=== PATIENT | male | born 1930 | race Caucasian/White ===

== ENCOUNTER 2017-08-06 04:02 | Emergency (ER) | payer MEDICARE ==
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
[2017-08-06] MEDS ORDERED: ONDANSETRON HCL/PF 2 MG/ML VIAL IV ONE (05:18)
[2017-08-06] MEDS ORDERED: HYDROmorphone HCL 1 MG/ML DISP.SYRIN IV ONE (05:19)
[2017-08-06] MEDS ORDERED: HYDROmorphone HCL 2 MG/ML VIAL ONE (05:19)
[2017-08-06] MEDS ORDERED: ONDANSETRON HCL/PF 2 MG/ML VIAL ONE (05:19)
--- NOTE | 2017-08-06 05:47 | CONS ---
[facility] - General Date of Service: 08/06/17 Narrative: Pt is an 87 y/o male who presents s/p a fall with acute hip pain. Pt is a resident at [facility] currently as his is there receiving PT after knee replacement. Most of the hx taken by patients daughter, who is in the room. He has a hx of right hip replacement approximately 10 years ago. 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 Pt has never fully recovered since this incident. Pt ambulates regularly with a cane. Pt states he has no other current complaints. Source: patient, family Exam Limitations: other - hx of stroke for patient approx. 2 years ago - History of Present Illness Allergies/Adverse Reactions: Allergies morphine Adverse Reaction (Severe, Verified 09/08/16 11:01) CONFUSION Home Medications: Home Medications Medication Instructions Recorded Last Taken Atorvastatin Calcium [Lipitor] 40 mg PO DAILY 09/18/12 Unknown Enalapril Maleate 20 mg PO BID 09/18/12 Unknown Bumetanide [Bumex] 2 mg PO BID 11/30/13 Unknown hydrALAZINE HCL [Hydralazine HCl] 100 mg PO TID 01/03/14 Unknown Docusate Sodium [Colace] 100 mg PO TID PRN 09/27/14 Unknown Potassium Chloride [Klor-Con 10] 20 meq PO TID 09/27/14 Unknown Bisacodyl [Dulcolax Suppository] 10 mg RC DAILY PRN 01/23/16 Unknown Escitalopram Oxalate [Lexapro] 20 mg PO DAILY 01/23/16 Unknown Lansoprazole [Prevacid] 30 mg PO BID 01/23/16 Unknown Metoprolol Tartrate [Lopressor] 12.5 mg PO BID 07/23/16 Unknown buPROPion HCL [Wellbutrin Sr, 150 mg PO BID 07/23/16 Unknown Zyban] Acetaminophen [Tylenol] 650 mg PO Q4H PRN 08/06/17 Unknown Lactose-Reduced Food [Ensure 240 ml PO BID 08/06/17 Unknown Liquid] Menthol [Biofreeze] 1 appl TP TID PRN 08/06/17 Unknown Rivaroxaban [Xarelto] 20 mg PO DAILY@1700 08/06/17 Unknown - Patient's Past Medical History Patient History - Medical: Osteoarthritis, Other Patient History - Cardiac/Respiratory: Atrial Fibrillation, CVA/Stroke Patient History - Cancer: No Hx of Cancer Patient History - Surgical Procedures: Angioplasty, Cataracts, Colon Resection, Colonoscopy, Coronary Bypass Surgery, Cardiac stent, Total Hip Replacement, Total Knee Replacement Patient History - Other: None - Family History Father Family History - Medical: Family History - Cardiac/Respiratory: Myocardial Infarction Mother Family History - Medical: - Social History Living Situations: assisted living Abuse History: No History of abuse Psych History: Hx of Depression Smoking Status: Never smoker Have you smoked in the past 12 months: No Alcohol Use: none Drug Use: none - Immunizations Immunizations Up to Date: Yes Hx Pneumococcal Vaccination: No History of Influenza Vaccine: No Procedures CATARAC PHACOEMULS/ASPIR (07/04/08) CLOSED ENDOSCOPIC BIOPSY OF LARGE INTESTINE (06/24/01) EPISTAXIS CONTROL NEC (02/27/13) INSERT LENS AT CATAR EXT (07/04/08) KNEE STRUCTURE DIVISION (07/05/08) KNEE SYNOVECTOMY (07/05/08) OPEN AND OTHER SIGMOIDECTOMY (06/24/01) OTH ARTHROTOMY-KNEE (07/05/08) OTHER SKIN & SUBQ I D (07/05/08) PACKED CELL TRANSFUSION (06/24/01) PATELLAR STABILIZATION (07/05/08) PLATELET TRANSFUSION (06/24/01) TOTAL KNEE REPLACEMENT (12/26/05) TRANSFUSE NONAUT FROZEN PLASMA IN PERIPH VEIN, PERC (09/08/16) VENOUS CATHETERIZATION NEC (06/24/01) WHOLE BLOOD TRANSFUS NEC (01/21/13) Review of Systems - Review of Systems Narrative: Negative other than HPI Physical Examination - Exam Vital Signs: Vital Signs - Last Taken Temp 36.9 C 08/06/17 04:06 Pulse 62 08/06/17 05:12 Resp 23 H 08/06/17 05:12 BP 155/69 08/06/17 05:12 Pulse Ox 93 08/06/17 05:12 O2 Oxygen Delivery Method Room Air Constitutional: Present: Cooperative, No distress Respiratory: Present: no respiratory distress Extremity: Present: other - RLE--> ttp over right hip, limb appears shortened and IR, SILT, dorsal pedis pulse 2+, 3/5 strength with PF/DF/EHL/FHL - Results and Findings: Narrative: - 87 y/o male with acute right hip dislocation s/p right total hip arthroplasty approximately 10 years ago - MAC anesthesia was administered, multiple reduction attempts were made. No successful reduction was believed. Post reduction films were obtained, confirmed a the right hip dislocation was not successfully reduced. Discussed with patient and daughter, who is the guardian, to treat patients current condition, he should be transferred to the [facility] for continued care and alternative attempts made for reduction. Pt will be transferred to the [facility] for continued care of is right hip dislocation. Pt was stable after reduction attempt, limb was neurovascularly intact and will be monitored until transfer. - Assessments/Findings (1) Hip dislocation, right Problem: Acute
--- NOTE | 2017-08-06 06:38 | PROC NOTE ---
ED Procedures - Joint Reduction Joint Reduction Site: hip (R) Conscious Sedation: Yes Progress: Preformed by: Edouard Jain PA-C Anesthesia: MAC Preoperative diagnosis: Right prosthetic hip dislocation Postoperative diagnosis: Right prosthetic hip dislocation. Procedure: Closed reduction of right prosthetic hip dislocation under conscious sedation Estimated blood loss: None Specimens: None Complications: None Indications: Mr. Conner is an 87 y/o male presents s/p an acute fall last night at the long-term. Pt was brought in for right hip pain. Pt has hx of right hip arthroplasty approximately 10 years ago. Pt has no hx of hip dislocations. Pt did suffer from a left sided stroke with right sided weakness. He were seen in the emergency department with images obtained revealing the above injury. Treatment options were discussed with the patient and family and the plan for closed reduction under conscious sedation was discussed. Risks were reviewed as well as follow-up. Procedure: After a timeout, MAC anesthetic was induced. Once adequate anesthesia was in place a reduction maneuver was performed by having downward stabilization at the pelvis at the ASIS while I pulled traction distally and anteriorly with the hip in a flexed and slightly externally rotated position. The hip appeared to not be successfully reduced. Multiple attempts were made in this fashion with no success. This was confirmed by AP and lateral post-reduction x-rays. The extremity was neurovascularly intact post-reduction attempts. Then discussed with daughter, who is the guardian, about treatment options including being referred to the [facility] for further attempts possibly under general anesthesia. Due to the history of hip arthroplasty and the unsuccessful reduction this would be the preferred option. Pt daughter agreed and pt will be transferred to [facility].
[2017-08-06 08:17] VITALS: BP 156/77
== END 2017-08-06 08:18 | disposition short-term general hospital (02) ==
LOC: ER 04:02
PROC: 0SW9XJZ Revision of Synthetic Substitute in Right Hip Joint, External Approach (ICD-10-PCS; principal; 2017-08-06)
DX: S73.004A Unspecified dislocation of right hip, initial encounter (principal); W18.30XA Fall on same level, unspecified, initial encounter; Y93.89 Activity, other specified; Y92.121 Bathroom in nursing home as the place of occurrence of the external cause; M19.90 Unspecified osteoarthritis, unspecified site; I48.91 Unspecified atrial fibrillation; Z79.01 Long term (current) use of anticoagulants
CPT/HCPCS: 27266; 71010; 73030; 73060; 73502; 96374; 96375; 99285; J2405

== ENCOUNTER 2019-03-22 16:37 | Observation (INO) ==
[2019-03-22] MEDS ORDERED: FUROSEMIDE 10 MG/ML VIAL IV ONE (17:27)
--- NOTE | 2019-03-22 17:37 | ERNOTE ---
Medical Problem HPI - Narrative Date of Service: 03/22/19 - General Chief Complaint: General Assessment Time Seen by Provider: 03/22/19 17:10 Source: patient, family Exam Limitations: physical impairment - Immun/Allergies/Home Medications Immunizations: IMMUNIZATION HX Immunizations Up to Date Yes History of Influenza Vaccine No Hx Pneumococcal Vaccination No Allergies/Adverse Reactions: Allergies morphine Adverse Reaction (Severe, Verified 03/22/19 16:59) CONFUSION Home Medications: HOME MEDICATIONS Docusate Sodium [Colace] 100 mg PO TID PRN 09/27/14 [Last Taken Unknown] Bisacodyl [Dulcolax Suppository] 10 mg RC DAILY PRN 01/23/16 [Last Taken Unknown] Acetaminophen [Tylenol] 650 mg PO Q4H PRN 08/06/17 [Last Taken Unknown] Lactose-Reduced Food [Ensure Liquid] 240 ml PO BID 08/06/17 [Last Taken Unknown] Menthol [Biofreeze] 1 appl TP TID PRN 08/06/17 [Last Taken Unknown] lidocaine 5 % topical patch 1 patch TP DAILY #30 ea 07/01/18 [Last Taken Unknown] bupropion HCl SR 150 mg tablet,12 hr sustained-release 150 mg PO BID #60 tab 11/08/18 [Last Taken Unknown] escitalopram 20 mg tablet 20 mg PO DAILY #30 tab 11/08/18 [Last Taken Unknown] atorvastatin 40 mg tablet 40 mg PO DAILY #30 tab 02/06/19 [Last Taken Unknown] bumetanide 2 mg tablet 2 mg PO BID #60 tab 02/06/19 [Last Taken Unknown] hydralazine 100 mg tablet 100 mg PO TID #90 tab 02/06/19 [Last Taken Unknown] lansoprazole 30 mg capsule,delayed release 30 mg PO BID #60 cap 02/06/19 [Last Taken Unknown] metoprolol tartrate 25 mg tablet 12.5 mg PO BID #30 tab 02/06/19 [Last Taken Unknown] potassium chloride ER 10 mEq capsule,extended release 20 meq PO TID #180 cap 02/06/19 [Last Taken Unknown] rivaroxaban 20 mg tablet 20 mg PO DAILY #30 tab 02/06/19 [Last Taken Unknown] magnesium citrate oral solution 296 ml PO ONCE #296 ml 02/11/19 [Last Taken Unknown] enalapril maleate 20 mg tablet 20 mg PO BID #60 tab 02/23/19 [Last Taken Unknown] - History of Present History Narrative: This patient is an 89-year-old male who is here with his daughter for a hospital admission. The patient has had a stroke and is a phasic. He is not able to give much history. The daughter states that he saw his locomotive engineer electric, Dr. Agosto, today. She recommended that he be admitted to the hospital and instructed him to go to the emergency room. The patient was accompanied to the visit by a son. That visit was around noon today. The son took him home to rest before the daughter brought him here. The daughter states that she understood that he is to be admitted for excess fluid. She says that he has gained 40 pounds, is short of breath, dizzy, and has swollen legs that are now blistering. He sleeps a lot and is weak. He is having leg pain. [facility] and [facility] was contacted and it sounds like the patient is no longer able to care for himself at home and has been having falls. There is concerned that he might need a [place] health care facility. Review of Systems - Review of Systems Constitutional: Present: fever EYE: Absent: blurred vision, double vision ENT: Absent: ear pain, nose congestion, nasal drainage, sore throat Respiratory: Present: shortness of breath. Absent: cough Cardiology: Present: edema. Absent: chest pain, palpitations, syncope Gastrointestinal/Abdominal: Present: abdominal pain. Absent: nausea, vomiting, diarrhea, constipation Genitourinary: Present: pain. Absent: frequency, decreased urinary output Musculoskeletal: Present: other - He has leg pain. Skin: Present: other - Leg swelling and blistering as noted above Neurological: Present: dizziness/light-headedness, weakness - Right-sided weakness after the stroke about 4 years ago. Absent: headache Endocrine: Present: unexplained weight gain Hematologic/Lymphatic: Present: other - No active bleeding but he has a history of anemia Psych: Present: no symptoms reported Medical History (Updated 03/22/19 @ 19:12 by Davide Mccall MD) Afib Onset Date: Unknown CAD (coronary artery disease) Onset Date: Unknown CHF (congestive heart failure) Onset Date: Unknown Chronic neck pain Onset Date: Unknown Hyperlipidemia Onset Date: Unknown Hypertension Onset Date: Unknown Hypokalemia Onset Date: Unknown Obesity Onset Date: Unknown Osteoarthritis Onset Date: Unknown Sleep apnea Onset Date: ~04/12/12 Aphasia Onset Date: Unknown Balance problem Onset Date: Unknown CVA (cerebral vascular accident) Onset Date: Unknown Chest pain Onset Date: Unknown Diverticulosis Onset Date: Unknown Dyspnea Onset Date: Unknown Edema Onset Date: Unknown Epididymal cyst Onset Date: ~01/15/18 GI bleed Onset Date: Unknown Gout Onset Date: Unknown Myocardial infarction Onset Date: Unknown Oropharyngeal dysphagia Onset Date: Unknown Pulmonary hypertension Onset Date: Unknown Rectal bleeding Onset Date: ~1981 TIA (transient ischemic attack) Onset Date: ~2017 Surgical History: Surgical History (Updated 07/01/18 @ 09:41 by Andria Kenyon CMA) Cataract Onset Date: ~07/04/08 right 06/06/08 left 07/04/08 H/O angioplasty Onset Date: ~1992 H/O cardiac catheterization Onset Date: ~08/2000 H/O oral surgery Onset Date: ~09/03/16 [facility] H/O sigmoidoscopy Onset Date: ~06/26/01 [place] History of colon resection Onset Date: ~06/26/01 sigmoid History of hip replacement Onset Date: Unknown right History of knee replacement Onset Date: ~12/29/05 left, neetu Hx of CABG Onset Date: ~06/2000 4 vessel H/O colonoscopy Onset Date: ~06/20/15 06/25/01, [place] diverticular disease. 06/20/15 [facility] tubular adenoma x2. Moderate diverticulosis ascending colon and sigmoid colon several large diverticula at cecum. Family History: Family History (Updated 07/01/18 @ 09:51 by Andria Kenyon CMA) Mother Myocardial infarction Daughter Alive and well Brother Cataract Social History: Preferred Language Luxembourgish Do you have any congregation or No cultural preference? Smoking Status Never smoker Abuse History No History of abuse Psych History Hx of Depression Alcohol Use none Drug Use none (Last Updated 02/28/19 @ 23:06 by Nando Ghotra DO) No Social History Section defined Physical Exam - Physical Exam General Appearance: Present: no apparent distress, lethargic, other - This patient is an elderly male who is sitting on the table with his eyes closed. He has difficulty answering questions, other than yes and no. Head Exam: Present: normal inspection, no evidence of injury Eye Exam: Normal inspection: bilateral Ears, Nose, Throat: Present: normal ENT inspection, normal pharynx Neck: Present: normal inspection, nontender. Absent: lymphadenopathy (R), lymphadenopathy (L), thyromegaly Respiratory: Present: no respiratory distress, normal breath sounds, crackles - Bilateral bases Cardiovascular/Chest: Present: regular rate, rhythm, systolic murmur Gastrointestinal/Abdominal: Present: normal bowel sounds, nondistended, soft, tenderness - Right upper quadrant. Absent: guarding, rebound Back Exam: Present: normal inspection Extremity Exam: Present: other - He has mild erythema of the lower extremities with some blisters noted on the left. He has 3+ pitting edema. The edema is up to the calf.. Absent: no edema Neurological Exam: Present: other - He is sitting on the table with his eyes closed. He has a aphasia and difficulty forming words. He is stutters. He has right-sided hemiplegia. Skin Exam: Present: normal color, warm/dry Progress - Date and Time Seen: Date and Time: Dr. Guerrero agreed to admit the patient. I spoke with the patient and his daughter. There is no way they want to go to a [place] facility. - Results and Orders Patient's Lab Results:: I have reviewed the patient's lab results. Results and Orders: Laboratory Tests 03/22/19 03/22/19 03/22/19 17:42 17:42 17:42 WBC 5.3 Hgb 7.2 L* Hct 26.4 L Plt Count 152 Immature Gran % (Auto) 0.20 Neutrophils % 62.2 Lymphocytes % 21.0 Monocytes % 12.9 H Eosinophils % 3.0 Basophils % 0.7 PT 14.0 H INR (Anticoag Therapy) 1.43 H Sodium 141 Plasma Sodium 141 Potassium 3.8 Chloride 103 Carbon Dioxide 29.0 Anion Gap 12.8 BUN 23 Creatinine 1.38 Est GFR (Non-Af Amer) 52 L BUN/Creatinine Ratio 16.7 Random Glucose 71 Calcium 8.5 Calcium Adj for Albumin 8.7 Total Bilirubin 0.6 AST 27 ALT 19 Alkaline Phosphatase 109 Troponin I 0.051 B-Natriuretic Peptide 7282 H Total Protein 7.7 Albumin 3.3 L Urine Color Urine Appearance Urine pH Ur Specific [place] Urine Protein Urine Glucose (UA) Urine Ketones Urine Blood Urine Nitrate Urine Bilirubin Urine Urobilinogen Ur Leukocyte Esterase Urine RBC Urine WBC Ur Epithelial Cells Urine Bacteria Hyaline Casts Urine Culture Comments 03/22/19 18:24 WBC Hgb Hct Plt Count Immature Gran % (Auto) Neutrophils % Lymphocytes % Monocytes % Eosinophils % Basophils % PT INR (Anticoag Therapy) Sodium Plasma Sodium Potassium Chloride Carbon Dioxide Anion Gap BUN Creatinine Est GFR (Non-Af Amer) BUN/Creatinine Ratio Random Glucose Calcium Calcium Adj for Albumin Total Bilirubin AST ALT Alkaline Phosphatase Troponin I B-Natriuretic Peptide Total Protein Albumin Urine Color Yellow Urine Appearance Clear Urine pH 6.5 Ur Specific [place] 1.010 Urine Protein Negative Urine Glucose (UA) Negative Urine Ketones Negative Urine Blood Negative Urine Nitrate Negative Urine Bilirubin Negative Urine Urobilinogen Normal Ur Leukocyte Esterase Negative Urine RBC None seen Urine WBC None seen Ur Epithelial Cells 0-5 Urine Bacteria Trace Hyaline Casts 0-5 H Urine Culture Comments No culture indicated - Vital Signs Patient's Vital Signs:: I have reviewed the patient's vital signs. Vital Signs: Vital Signs 03/22/19 16:54 Temperature 36.1 C Pulse Rate 63 Respiratory Rate 20 Blood Pressure 156/89 H O2 Sat by Pulse Oximetry 95 - EKG EKG #1 EKG read: Interp. by me EKG Comments: Atrial fibrillation Rate [address]-T wave changes Poor R wave progression Compared to an EKG dated 06/18/2015, the lateral ST T wave changes are new. - X-Ray X-Ray #1 X-Ray: chest Interpretation: Reviewed by me X-ray Comments: HISTORY: short of breath Additional history from technologist: PATIENT WITH SHORTNESS OF BREATH, BILATERAL LEG SWELLING, WEAKNESS TODAY. TECHNIQUE: Single portable AP view of the chest was obtained at 1745 hours. COMPARISONS: 08/06/2017 FINDINGS: Chest Single View *: Severely hypoinflated lungs. Bibasilar linear opacities suggestive of atelectatic change. There is increased pulmonary vasculature and peripheral linear lung markings. No definite definable pneumothorax. No definite pleural fluid suggested. Moderate to large cardiomegaly, grossly stable given differences in technique and positioning of the patient. Vascular calcifications overlying moderately tortuous aorta, grossly stable. Trachea is in normal position given patient positioning. Osseous structures are grossly intact. Multiple median sternotomy wires are present. IMPRESSION: 1. Hypoventilatory changes, with bibasilar atelectasis. 2. Grossly stable cardiomegaly, with increased pulmonary vascular and peripheral linear lung markings suggestive of pulmonary edema. 3. Additional comments are as above. Electronically signed by Alphonse Lovell M.D.. - Progress/Reassessment Chief Complaint: General Assessment Departure Clinical Impression: Anemia, CHF (congestive heart failure), Anasarca, History of CVA (cerebrovascular accident), History of coronary artery disease - Departure Disposition: Still a patient Condition: Stable
[2019-03-22 18:00] LABS: INR 1.43 INR (0.92-1.08)
[2019-03-22 18:07] LABS: Hematocrit 26.4 % (42.0-52.0); Mean Cell Volume 82.8 fl (78-100); Mean Corpuscular Hemoglobin 22.6 pg (27-31); Mean Corpuscular Hgb Conc 27.3 g/dl (32-36); Mean Platelet Volume 9.3 fl (8-11.3); Neutrophil # 3.3 K/mm3 (1.3-6.0); Neutrophil % 62.2 % (42-75.0); Platelet Count 152 K/mm3 (150-450); Red Blood Count 3.19 M/mm3 (4.7-6.0); Red Cell Distribution Width 21.5 % (11.5-14.0); White Blood Count 5.3 K/mm3 (4.0-10.5)
[2019-03-22 18:09] LABS: Albumin * 3.3 gm/dl (3.4-5.0); Anion Gap 12.8 mmol/L (6.8-13.8); BUN/Creatinine Ratio 16.7 (9.0-21.6); Bilirubin, Total 0.6 mg/dL (0.0-1.1); Ca. Corrected For Albumin 8.7 mg/dL (8.4-10.2); Calcium * 8.5 mg/dL (7.9-10.9); Potassium 3.8 mmol/L (3.4-4.6); Total Protein 7.7 gm/dL (6.2-8.2)
[2019-03-22 18:10] LABS: Hemoglobin 7.2 gm/dL (13.5-18.0)
[2019-03-22 18:12] LABS: Troponin I 0.051 ng/mL (0.00-0.10)
[2019-03-22 18:33] LABS: Urine Bilirubin Negative (NEGATIVE); Urine Blood Negative /ul (NEGATIVE); Urine Ketone Negative (NEGATIVE); Urine Nitrite Negative (NEGATIVE); Urine Protein Negative (NEGATIVE); Urine Urobilinogen Normal (NORMAL); Urine pH 6.5 pH (5.0-7.0)
[2019-03-22 18:42] LABS: Urine Appearance Clear (CLEAR); Urine Bacteria TRACE; Urine Color Yellow; Urine Hyaline Cast 0-5 /LPF; Urine RBC None Seen /hpf (0-5); Urine WBC None Seen /hpf (0-5)
[2019-03-22] MEDS ORDERED: ACETAMINOPHEN 325 MG TABLET PO PRN (21:12)
[2019-03-22] MEDS ORDERED: NON-FORMULARY 1 DOSE DOSE (Menthol [Biofreeze] 1 APPL) TP PRN (21:12)
[2019-03-22] MEDS ORDERED: DOCUSATE SODIUM 100 MG CAPSULE PO PRN (21:12)
[2019-03-22] MEDS ORDERED: BISACODYL 10 MG SUPP.RECT RC PRN (21:12)
[2019-03-22] MEDS ORDERED: hydrALAZINE HCL 25 MG TABLET ONE (22:37)
[2019-03-22] MEDS: hydrALAZINE HCL 50 MG TABLET PO SCH (22:40)
[2019-03-22] MEDS: METOPROLOL TARTRATE 25 MG TABLET PO SCH (22:41)
[2019-03-22] MEDS: POTASSIUM CHLORIDE 20 MEQ TABLET.SA PO SCH (22:41)
[2019-03-22] MEDS: buPROPion HCL 150 MG TABLET.SA PO SCH (22:42)
[2019-03-22] MEDS: ENALAPRIL MALEATE 20 MG TABLET PO SCH (22:42)
[2019-03-23] MEDS ORDERED: FUROSEMIDE 10 MG/ML VIAL IV SCH ×2 (00:01→09:00)
[2019-03-23] MEDS: PANTOPRAZOLE SODIUM 40 MG TABLET.EC PO SCH ×2 (06:49→16:36)
--- NOTE | 2019-03-23 07:16 | HP ---
Chief Complaint - Chief Complaint Date of Service: 03/23/19 Time of Service: 06:48 Chief Complaint: shortnss of breath History of Present Illness: Andrea Conner is a 89-year-old white male, patient of Dr. Ghotra, who was admitted yesterday on 03/22/2019 because of weight gain and shortness of breath. The patient's past medical history is significant for Coronary artery disease status post CABG, atrial fibrillation, hypertension, hyperlipidemia, pulmonary hypertension, obstructive sleep apnea. The patient was seen by Dr. 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 The patient functional status has significantly declined. As per family patient is just sleeping a lot and is getting weaker and weaker. The patient gained 40 pounds and gets leg pains. He has been increasing really having shortness of breath associated with dizziness. He has been having increasing number of falls and family is concerned that he is no longer able to take care of himself and may need a half-way. In the ED his EKG showed AFib with VR of 65, anteroseptal myocardial infarction of indeterminate age. His troponin was .052 and his BNP was 7282. His CXR showed cardiomegaly with pulmonary edema and basilar atelectasis. Patient was admitted for IV diuresis and possible half-way placement. . Medical History (Updated 03/23/19 @ 07:16 by Danika Guerrero MD) Afib Onset Date: Unknown CAD (coronary artery disease) Onset Date: Unknown CHF (congestive heart failure) Onset Date: Unknown Chronic neck pain Onset Date: Unknown Hyperlipidemia Onset Date: Unknown Hypertension Onset Date: Unknown Hypokalemia Onset Date: Unknown Obesity Onset Date: Unknown Osteoarthritis Onset Date: Unknown Sleep apnea Onset Date: ~04/12/12 Aphasia Onset Date: Unknown Balance problem Onset Date: Unknown CVA (cerebral vascular accident) Onset Date: Unknown Chest pain Onset Date: Unknown Diverticulosis Onset Date: Unknown Dyspnea Onset Date: Unknown Edema Onset Date: Unknown Epididymal cyst Onset Date: ~01/15/18 GI bleed Onset Date: Unknown Gout Onset Date: Unknown Myocardial infarction Onset Date: Unknown Oropharyngeal dysphagia Onset Date: Unknown Pulmonary hypertension Onset Date: Unknown Rectal bleeding Onset Date: ~1981 TIA (transient ischemic attack) Onset Date: ~2017 Surgical History: Surgical History (Updated 03/23/19 @ 07:16 by Danika Guerrero MD) Cataract Onset Date: ~07/04/08 right 06/06/08 left 07/04/08 H/O angioplasty Onset Date: ~1992 H/O cardiac catheterization Onset Date: ~08/2000 H/O oral surgery Onset Date: ~09/03/16 [facility] H/O sigmoidoscopy Onset Date: ~06/26/01 [place] History of colon resection Onset Date: ~06/26/01 sigmoid History of hip replacement Onset Date: Unknown right History of knee replacement Onset Date: ~12/29/05 leftenetu Hx of CABG Onset Date: ~06/2000 4 vessel H/O colonoscopy Onset Date: ~06/20/15 06/25/01, [place] diverticular disease. 06/20/15 [facility] tubular adenoma x2. Moderate diverticulosis ascending colon and sigmoid colon several large div erticula at cecum. 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 Smoking Status Never smoker Have you smoked in the past 12 No months Do you dip or chew tobacco No Abuse History No History of abuse Psych History Hx of Depression Alcohol Use none Drug Use none (Last Updated 02/28/19 @ 23:06 by Nando Ghotra DO) No Social History Section defined Review Of Systems (GEN) - Review of Systems Generalized/Overall Review: Present: Weakness. Absent: Chills, Fever EENTM: Absent: Blurred Vision Respiratory: Present: Cough, Shortness of Breath, Orthopnea, Wheezing - occasional Cardiac: Present: Edema. Absent: Chest Pain, Palpitations Abdominal: Absent: Nausea, Vomiting, Abdominal Pain Genitourinary: Absent: Urgency, Frequency Musculoskeletal: Present: Other - leg pain. Absent: Joint Pain, Back Pain Neurological: Absent: Headache Skin: Present: Lesions, Rash Endocrine: Absent: Intolerance to Cold, Intolerance to Heat Misc: All systems neg except as marked Immunizations: IMMUNIZATION HX Immunizations Up to Date Yes History of Influenza Vaccine No Hx Pneumococcal Vaccination No Allergies/Adverse Reactions: Allergies Allergy/AdvReac Type Severity Reaction Status Date / Time morphine AdvReac Severe CONFUSION Verified 03/22/19 16:59 Home Medications: HOME MEDICATIONS Docusate Sodium [Colace] 100 mg PO TID PRN 09/27/14 [Last Taken Unknown] Bisacodyl [Dulcolax Suppository] 10 mg RC DAILY PRN 01/23/16 [Last Taken Unknown] Acetaminophen [Tylenol] 650 mg PO Q4H PRN 08/06/17 [Last Taken Unknown] Menthol [Biofreeze] 1 appl TP TID PRN 08/06/17 [Last Taken Unknown] bupropion HCl SR 150 mg tablet,12 hr sustained-release 150 mg PO BID #60 tab 11/08/18 [Last Taken Unknown] escitalopram 20 mg tablet 20 mg PO DAILY #30 tab 11/08/18 [Last Taken Unknown] atorvastatin 40 mg tablet 40 mg PO DAILY #30 tab 02/06/19 [Last Taken Unknown] bumetanide 2 mg tablet 2 mg PO BID #60 tab 02/06/19 [Last Taken Unknown] hydralazine 100 mg tablet 100 mg PO TID #90 tab 02/06/19 [Last Taken Unknown] lansoprazole 30 mg capsule,delayed release 30 mg PO BID #60 cap 02/06/19 [Last Taken Unknown] metoprolol tartrate 25 mg tablet 12.5 mg PO BID #30 tab 02/06/19 [Last Taken Unknown] potassium chloride ER 10 mEq capsule,extended release 20 meq PO TID #180 cap 02/06/19 [Last Taken Unknown] rivaroxaban 20 mg tablet 20 mg PO DAILY #30 tab 02/06/19 [Last Taken 03/21/19 20:00 20MG] enalapril maleate 20 mg tablet 20 mg PO BID #60 tab 02/23/19 [Last Taken Unknown] Finasteride [Proscar] 5 mg PO DAILY 03/22/19 [Last Taken Unknown] hydrALAZINE HCL [Hydralazine HCl] 100 mg PO TID 03/22/19 [Last Taken Unknown] Exam - Exam Vital Signs: Vital Signs - Last Taken Temp 37.1 C 03/23/19 06:32 Pulse 59 L 03/23/19 06:32 Resp 24 H 03/23/19 06:32 BP 136/67 03/23/19 06:32 Pulse Ox 95 03/23/19 06:32 Constitutional: Present: Alert - AAO x 2, Cooperative, Mild distress, Elderly ENT Exam: Present: hearing grossly normal Eye Exam: bilateral eye: normal inspection, PERRL, EOMI Neck: Present: supple Respiratory: Present: decreased breath sounds, rales, wheezing - occasional Cardiovascular/Chest: Present: JVD, diastolic murmur, irregularly irregular Abdomen: Present: Normal bowel sounds, soft, nontender, nondistended Extremity: Present: no calf tenderness, lower extremity edema Diagnostic Studies: Abnormal Lab Results 03/22/19 03/22/19 03/22/19 Range/Units 17:42 17:42 17:42 RBC 3.19 L (4.7-6.0) M/mm3 Hgb 7.2 L* (13.5-18.0) gm/dL Hct 26.4 L (42.0-52.0) % MCH 22.6 L (27-31) pg MCHC 27.3 L (32-36) g/dl RDW 21.5 H (11.5-14.0) % Monocytes % 12.9 H (0.0-9) % Lymphocytes # 1.12 L (1.5-3.5) k/mm3 PT 14.0 H (9.1-10.7) Seconds INR (Anticoag Therapy) 1.43 H (0.92-1.08) INR Est GFR (Non-Af Amer) 52 L (60-130) mL/min B-Natriuretic Peptide 7282 H (5-650) pg/mL Albumin 3.3 L (3.4-5.0) gm/dl Hyaline Casts (NONE) /LPF 03/22/19 Range/Units 18:24 RBC (4.7-6.0) M/mm3 Hgb (13.5-18.0) gm/dL Hct (42.0-52.0) % MCH (27-31) pg MCHC (32-36) g/dl RDW (11.5-14.0) % Monocytes % (0.0-9) % Lymphocytes # (1.5-3.5) k/mm3 PT (9.1-10.7) Seconds INR (Anticoag Therapy) (0.92-1.08) INR Est GFR (Non-Af Amer) (60-130) mL/min B-Natriuretic Peptide (5-650) pg/mL Albumin (3.4-5.0) gm/dl Hyaline Casts 0-5 H (NONE) /LPF Laboratory Results WBC 5.3 K/mm3 (4.0-10.5) 03/22/19 17:42 RBC 3.19 M/mm3 (4.7-6.0) L 03/22/19 17:42 Hgb 7.2 gm/dL (13.5-18.0) L* 03/22/19 17:42 Hct 26.4 % (42.0-52.0) L 03/22/19 17:42 MCV 82.8 fl (78-100) 03/22/19 17:42 MCH 22.6 pg (27-31) L 03/22/19 17:42 MCHC 27.3 g/dl (32-36) L 03/22/19 17:42 RDW 21.5 % (11.5-14.0) H 03/22/19 17:42 Plt Count 152 K/mm3 (150-450) 03/22/19 17:42 MPV 9.3 fl (8-11.3) 03/22/19 17:42 Immature Gran % (Auto) 0.20 % (0.001-0.429) 03/22/19 17:42 Immature Gran # (Auto) 0.01 K/mm3 (0.000-0.0310) 03/22/19 17:42 62.2 % (42-75.0) 03/22/19 17:42 21.0 % (20-51) 03/22/19 17:42 12.9 % (0.0-9) H 03/22/19 17:42 3.0 % (0.0-3.0) 03/22/19 17:42 0.7 % (0.0-1.0) 03/22/19 17:42 Nucleated RBC % 0.0 k/mm3 (0-1) 03/22/19 17:42 3.3 K/mm3 (1.3-6.0) 03/22/19 17:42 1.12 k/mm3 (1.5-3.5) L 03/22/19 17:42 0.7 k/mm3 (0.0-1.0) 03/22/19 17:42 0.2 k/mm3 (0.0-0.7) 03/22/19 17:42 Absolute Basophils 0.0 k/mm3 (0.0-0.1) 03/22/19 17:42 PT 14.0 Seconds (9.1-10.7) H 03/22/19 17:42 INR (Anticoag Therapy) 1.43 INR (0.92-1.08) H 03/22/19 17:42 Sodium 141 mmol/L (132-142) 03/22/19 17:42 141 mmol/L (130-142) 03/22/19 17:42 Potassium 3.8 mmol/L (3.4-4.6) 03/22/19 17:42 Chloride 103 mmol/L (97-106) 03/22/19 17:42 Carbon Dioxide 29.0 mmol/L (24-32.6) 03/22/19 17:42 12.8 mmol/L (6.8-13.8) 03/22/19 17:42 BUN 23 mg/dL (6-23) 03/22/19 17:42 1.38 mg/dL (0.4-1.4) 03/22/19 17:42 Est GFR (Non-Af Amer) 52 mL/min (60-130) L 03/22/19 17:42 16.7 (9.0-21.6) 03/22/19 17:42 71 mg/dL (70-110) 03/22/19 17:42 Calcium 8.5 mg/dL (7.9-10.9) 03/22/19 17:42 Calcium Adj for Albumin 8.7 mg/dL (8.4-10.2) 03/22/19 17:42 0.6 mg/dL (0.0-1.1) 03/22/19 17:42 AST 27 U/L (0-48) 03/22/19 17:42 ALT 19 U/L (19-67) 03/22/19 17:42 109 U/L (50-170) 03/22/19 17:42 0.051 ng/mL (0.00-0.10) 03/22/19 17:42 B-Natriuretic Peptide 7282 pg/mL (5-650) H 03/22/19 17:42 7.7 gm/dL (6.2-8.2) 03/22/19 17:42 3.3 gm/dl (3.4-5.0) L 03/22/19 17:42 Yellow 03/22/19 18:24 Clear (CLEAR) 03/22/19 18:24 6.5 pH (5.0-7.0) 03/22/19 18:24 Ur Specific [place] 1.010 SP.GR. (1.005-1.030) 03/22/19 18:24 Negative mg/dL (NEGATIVE) 03/22/19 18:24 Negative mg/dL (NEGATIVE) 03/22/19 18:24 Negative mg/dL (NEGATIVE) 03/22/19 18:24 Negative /ul (NEGATIVE) 03/22/19 18:24 Negative (NEGATIVE) 03/22/19 18:24 Negative mg/dl (NEGATIVE) 03/22/19 18:24 Normal EU/dl (NORMAL) 03/22/19 18:24 Ur Leukocyte Esterase Negative /ul (NEGATIVE) 03/22/19 18:24 None seen /hpf (0-5) 03/22/19 18:24 None seen /hpf (0-5) 03/22/19 18:24 Ur Epithelial Cells 0-5 /hpf (0-5) 03/22/19 18:24 Trace (NONE) 03/22/19 18:24 Hyaline Casts 0-5 /LPF (NONE) H 03/22/19 18:24 No culture indicated 03/22/19 18:24 Assessment/Plan - Assessment/Plan (1) Weakness Assessment: multifactorial- advanced age, anemia, deconditioning , CHF. will refer to PT. consider BT once out of acute exacerbation of CHF Problem: Acute (2) Falls frequently Assessment: due to weakness Problem: Acute (3) Acute exacerbation of CHF (congestive heart failure) Assessment: he put out 1950 ml overnight after getting total of 120 mg of IV Lasix. continue with IV diuresis. low salt diet. monitor I's and O's and daily weight. he is on an FLORY I and and a BBlocker. Problem: Acute Qualifiers: Heart failure type: unspecified Qualified Code(s): I50.9 - Heart failure, unspecified (4) History of CVA (cerebrovascular accident) Problem: Chronic (5) History of coronary artery disease Assessment: s/p CABG Problem: Chronic (6) Pulmonary hypertension Problem: Chronic
[2019-03-23 07:46] LABS: Hematocrit 24.1 % (42.0-52.0); Mean Cell Volume 80.6 fl (78-100); Mean Corpuscular Hemoglobin 23.1 pg (27-31); Mean Corpuscular Hgb Conc 28.6 g/dl (32-36); Mean Platelet Volume 9.3 fl (8-11.3); Neutrophil % 60.8 % (42-75.0); Platelet Count 154 K/mm3 (150-450); Red Blood Count 2.99 M/mm3 (4.7-6.0); Red Cell Distribution Width 21.2 % (11.5-14.0); White Blood Count 4.9 K/mm3 (4.0-10.5)
[2019-03-23 07:50] LABS: Hemoglobin 6.9 gm/dL (13.5-18.0)
[2019-03-23 07:58] LABS: Anion Gap 12.3 mmol/L (6.8-13.8); BUN/Creatinine Ratio 15.3 (9.0-21.6); Calcium * 8.4 mg/dL (7.9-10.9); Carbon Dioxide 29.1 mmol/L (24-32.6); Estimated Creat Clear 40.9; Potassium 3.4 mmol/L (3.4-4.6)
[2019-03-23 08:01] LABS: Troponin I 0.038 ng/mL (0.00-0.10)
[2019-03-23] MEDS ORDERED: FINASTERIDE 5 MG TABLET PO SCH (09:00)
[2019-03-23] MEDS ORDERED: ROSUVASTATIN CALCIUM 20 MG TABLET PO SCH ×2 (09:00→21:00)
[2019-03-23] MEDS ORDERED: HYDRALAZINE HCL 100 MG PO SCH (09:00)
[2019-03-23] MEDS ORDERED: ESCITALOPRAM OXALATE 10 MG TAB PO SCH (09:00)
[2019-03-23] MEDS ORDERED: RIVAROXABAN 20 MG TABLET PO SCH (09:00)
[2019-03-23] MEDS: hydrALAZINE HCL 50 MG TABLET PO SCH ×3 (09:57→16:36)
[2019-03-23] MEDS: ENALAPRIL MALEATE 20 MG TABLET PO SCH (09:58)
[2019-03-23] MEDS: METOPROLOL TARTRATE 25 MG TABLET PO SCH (09:58)
[2019-03-23] MEDS: POTASSIUM CHLORIDE 20 MEQ TABLET.SA PO SCH ×3 (09:58→16:36)
[2019-03-23] MEDS: buPROPion HCL 150 MG TABLET.SA PO SCH (09:59)
[2019-03-23 18:40] LABS: Hematocrit 28.8 % (42.0-52.0); Hemoglobin 8.3 gm/dL (13.5-18.0)
--- NOTE | 2019-03-23 18:42 | DS ---
(1) Acute exacerbation of CHF (congestive heart failure) Problem: Acute Qualifiers: Heart failure type: diastolic Qualified Code(s): I50.33 - Acute on chronic diastolic (congestive) heart failure (2) Anemia Problem: Acute Qualifiers: Iron deficiency anemia type: chronic blood loss Description of Stay: Andrea is an 89 yo male that was admitted for shortness of breath secondary to acute on chronic diastolic CHF and anemia of chronic disease. He occasionally has nose bleeds and the hemoglobin has trended down over time. Hemoglobin is now 6.9 and due to his symptomatic shortness of breath he was transfused 2 units of pRBCs with IV lasix. He was treated with Lasix due to evidence of pulmonary congestion on chest xray, although no findings of hypoxia. He was admitted to observation for diuresis and blood transfusion but once that was completed he was discharged to home. He agreed to home health with [facility]. He is home bound as it is physically taxing to leave the home due to chronic diastolic CHF and anemia of chronic disease. He needs correction to monitor fluid status and help with medication organization and monitoring. The need for home health care skilled services is directly related to the time spent face to face with Andrea today. Procedures Performed: none Results and Findings: Lab Pending Results 03/22/19 17:42: WBC 5.3, RBC 3.19 L, Hgb 7.2 L*, Hct 26.4 L, MCV 82.8, MCH 22.6 L, MCHC 27.3 L, RDW 21.5 H, Plt Count 152, MPV 9.3, Immature Gran % (Auto) 0.20, Immature Gran # (Auto) 0.01, Neutrophils % 62.2, Lymphocytes % 21.0, Monocytes % 12.9 H, Eosinophils % 3.0, Basophils % 0.7, Nucleated RBC % 0.0, Neutrophils # 3.3, Lymphocytes # 1.12 L, Monocytes # 0.7, Eosinophils # 0.2, Absolute Basophils 0.0 03/22/19 17:42: PT 14.0 H, INR (Anticoag Therapy) 1.43 H 03/22/19 17:42: Sodium 141, Plasma Sodium 141, Potassium 3.8, Chloride 103, Carbon Dioxide 29.0, Anion Gap 12.8, BUN 23, Creatinine 1.38, Est GFR (Non-Af Amer) 52 L, BUN/Creatinine Ratio 16.7, Random Glucose 71, Calcium 8.5, Calcium Adj for Albumin 8.7, Total Bilirubin 0.6, AST 27, ALT 19, Alkaline Phosphatase 109, Troponin I 0.051, B-Natriuretic Peptide 7282 H, Total Protein 7.7, Albumin 3.3 L 03/22/19 18:24: Urine Color Yellow, Urine Appearance Clear, Urine pH 6.5, Ur Specific [place] 1.010, Urine Protein Negative, Urine Glucose (UA) Negative, Urine Ketones Negative, Urine Blood Negative, Urine Nitrate Negative, Urine Bilirubin Negative, Urine Urobilinogen Normal, Ur Leukocyte Esterase Negative, Urine RBC None seen, Urine WBC None seen, Ur Epithelial Cells 0-5, Urine Bacteria Trace, Hyaline Casts 0-5 H, Urine Culture Comments No culture indicated 03/23/19 07:33: WBC 4.9, RBC 2.99 L, Hgb 6.9 L*, Hct 24.1 L, MCV 80.6, MCH 23.1 L, MCHC 28.6 L, RDW 21.2 H, Plt Count 154, MPV 9.3, Immature Gran % (Auto) 0.20, Immature Gran # (Auto) 0.01, Neutrophils % 60.8, Lymphocytes % 23.4, Monocytes % 13.0 H, Eosinophils % 1.8, Basophils % 0.8, Nucleated RBC % 0.0, Neutrophils # 3.0, Lymphocytes # 1.15 L, Monocytes # 0.6, Eosinophils # 0.1, Absolute Basophils 0.0 03/23/19 07:33: Sodium 142, Plasma Sodium 142, Potassium 3.4, Chloride 104, Carbon Dioxide 29.1, Anion Gap 12.3, BUN 21, Creatinine 1.37, Est GFR (Non-Af Amer) 52 L, BUN/Creatinine Ratio 15.3, Random Glucose 82, Calcium 8.4, Troponin I 0.038 03/23/19 08:49: Blood Type B Negative, Antibody Screen Negative, Crossmatch See Detail 03/23/19 13:35: Troponin I 0.053 Discharge Location: Home Disposition: [facility] Agency: [facility] Home Health Condition: Stable Face to Face Encounter completed per CMS Guidelines: Yes Discharge Activity: Activity as tolerated Discharge Diet: Low salt Referrals: Nando Ghotra DO [Primary Care Provider] - One Week Problem Oriented Discharge Instructions to Patient/Family: CHF Patient Instructions Additional Patient Instructions (free text): -Please make TCM appointment unless mcc discharge. Thank you! Halie @ [phone]. Critical access hospital. Please call report and fax orders upon discharge. Complete Home Medications List: Complete Home Medication List: Docusate Sodium [Colace] 100 mg PO TID PRN 09/27/14 Bisacodyl [Dulcolax Suppository] 10 mg RC DAILY PRN 01/23/16 Acetaminophen [Tylenol] 650 mg PO Q4H PRN 08/06/17 Menthol [Biofreeze] 1 appl TP TID PRN 08/06/17 bupropion HCl SR 150 mg tablet,12 hr sustained-release 150 mg PO BID #60 tab 11/08/18 escitalopram 20 mg tablet 20 mg PO DAILY #30 tab 11/08/18 atorvastatin 40 mg tablet 40 mg PO DAILY #30 tab 02/06/19 bumetanide 2 mg tablet 2 mg PO BID #60 tab 02/06/19 hydralazine 100 mg tablet 100 mg PO TID #90 tab 02/06/19 lansoprazole 30 mg capsule,delayed release 30 mg PO BID #60 cap 02/06/19 metoprolol tartrate 25 mg tablet 12.5 mg PO BID #30 tab 02/06/19 potassium chloride ER 10 mEq capsule,extended release 20 meq PO TID #180 cap 02/06/19 rivaroxaban 20 mg tablet 20 mg PO DAILY #30 tab 02/06/19 enalapril maleate 20 mg tablet 20 mg PO BID #60 tab 02/23/19 Finasteride [Proscar] 5 mg PO DAILY 03/22/19 hydrALAZINE HCL [Hydralazine HCl] 100 mg PO TID 03/22/19
[2019-03-23 22:00] VITALS: BP 146/76
== END 2019-03-23 20:00 | disposition home health service (06) ==
LOC: ER 16:37 → MS 16:37
PROVIDERS: ADMIT Internal Medicine; ATTEND Family Medicine
CPT/HCPCS: 36415; 36430; 71010; 71045; 80048; 80053; 81001; 83519; 83880; 84484; 85014; 85018; 85025; 85610; 86850; 93005; 96374; 96375; 99285; G0378; P9016

== ENCOUNTER 2019-07-15 05:33 | Inpatient (IN) ==
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
[2019-07-15] MEDS ORDERED: LIDOCAINE HCL/EPINEPHRINE 30 ML VIAL IJ ONE ×2 (07:33→07:34)
[2019-07-15] MEDS ORDERED: BISACODYL 10 MG SUPP.RECT RC PRN (11:17)
[2019-07-15] MEDS ORDERED: ACETAMINOPHEN 325 MG TABLET PO PRN (11:17)
[2019-07-15] MEDS ORDERED: DOCUSATE SODIUM 100 MG CAPSULE PO PRN (11:17)
[2019-07-15] MEDS: traMADol HCL 50 MG TABLET PO PRN (12:08)
[2019-07-15] MEDS: POTASSIUM CHLORIDE 20 MEQ TABLET.SA PO SCH ×2 (12:08→18:15)
[2019-07-15 12:28] LABS: Mean Cell Volume 84.7 fl (78-100); Mean Corpuscular Hemoglobin 24.4 pg (27-31); Mean Corpuscular Hgb Conc 28.8 g/dl (32-36); Neutrophil # 5.1 K/mm3 (1.3-6.0); Neutrophil % 76.8 % (42-75.0); Platelet Count 114 K/mm3 (150-450); Red Blood Count 2.09 M/mm3 (4.7-6.0); Red Cell Distribution Width 20.4 % (11.5-14.0); White Blood Count 6.7 K/mm3 (4.0-10.5)
[2019-07-15 12:32] LABS: Hematocrit 17.7 % (42.0-52.0); Hemoglobin 5.1 gm/dL (13.5-18.0)
[2019-07-15 12:50] LABS: INR 1.43 INR (0.92-1.08)
[2019-07-15 12:55] LABS: Albumin * 2.6 gm/dl (3.4-5.0); Anion Gap 11.3 mmol/L (6.8-13.8); BUN/Creatinine Ratio 16.4 (9.0-21.6); Bilirubin, Total 0.7 mg/dL (0.0-1.1); Ca. Corrected For Albumin 8.8 mg/dL (8.4-10.2); Carbon Dioxide 30.4 mmol/L (24-32.6); Potassium 3.7 mmol/L (3.4-4.6); Total Protein 5.8 gm/dL (6.2-8.2)
[2019-07-15] MEDS: BUMETANIDE 1 MG TABLET PO SCH (22:19)
[2019-07-15] MEDS: METOPROLOL TARTRATE 25 MG TABLET PO SCH (22:19)
[2019-07-15] MEDS: ROSUVASTATIN CALCIUM 20 MG TABLET PO SCH (22:20)
[2019-07-15] MEDS: PANTOPRAZOLE SODIUM 40 MG TABLET.EC PO SCH (22:20)
[2019-07-15] MEDS: ENALAPRIL MALEATE 20 MG TABLET PO SCH (22:20)
--- NOTE | 2019-07-15 23:55 | HP ---
Chief Complaint - Chief Complaint Date of Service: 07/15/19 Time of Service: 12:00 Chief Complaint: Fall, blood thinners, head laceration History of Present Illness: Andrea is an 89 yo male with history of stroke 4 years ago with chr onic garbled speech and right upper extremity weakness. He is on chronic anticoagulation of eliquis. He was found this morning on the floor of his bedroom with a large posterior scalp laceration, blood on the floor, and had apparently fallen and hit his head on his nightstand. It is unknown how long he was on the floor. EMS was called and brought him to the [facility] ER. A head CT showed possible evidence of bleeding intracranially, but no obvious bleeding. [place] were placed in scalp laceration. Radiology recommended repeating head CT in 6-12 hours to determine if there was active intracranial bleeding. Medical History (Updated 07/15/19 @ 23:55 by Nando Ghotra DO) Cardiomegaly (Chronic) Onset Date: Unknown Per documentation from [facility]. Stable large cardiomegaly. Afib Onset Date: Unknown CAD (coronary artery disease) Onset Date: Unknown CHF (congestive heart failure) Onset Date: Unknown Chronic neck pain Onset Date: Unknown Hyperlipidemia Onset Date: Unknown Hypertension Onset Date: Unknown Hypokalemia Onset Date: Unknown Obesity Onset Date: Unknown Osteoarthritis Onset Date: Unknown Sleep apnea Onset Date: ~04/12/12 Aphasia Onset Date: Unknown Balance problem Onset Date: Unknown CVA (cerebral vascular accident) Onset Date: Unknown Chest pain Onset Date: Unknown Diverticulosis Onset Date: Unknown Dyspnea Onset Date: Unknown Edema Onset Date: Unknown Epididymal cyst Onset Date: ~01/15/18 GI bleed Onset Date: Unknown Gout Onset Date: Unknown Myocardial infarction Onset Date: Unknown Oropharyngeal dysphagia Onset Date: Unknown Pulmonary hypertension Onset Date: Unknown Rectal bleeding Onset Date: ~1981 TIA (transient ischemic attack) Onset Date: ~2017 Surgical History: Surgical History (Updated 03/23/19 @ 07:16 by Danika Guerrero MD) Cataract Onset Date: ~07/04/08 right 06/06/08 left 07/04/08 H/O angioplasty Onset Date: ~1992 H/O cardiac catheterization Onset Date: ~08/2000 H/O oral surgery Onset Date: ~09/03/[address] [facility] H/O sigmoidoscopy Onset Date: ~06/26/01 [place] History of colon resection Onset Date: ~06/26/01 sigmoid History of hip replacement Onset Date: Unknown right History of knee replacement Onset Date: ~12/29/05 leftneetu Hx of CABG Onset Date: ~06/2000 4 vessel H/O colonoscopy Onset Date: ~06/20/15 06/25/01, [place] diverticular disease. 06/20/15 [facility] tubular adenoma x2. Moderate diverticulosis ascending colon and sigmoid colon several large diverticula at cecum. Family History: Family History (Updated 07/01/18 @ 09:51 by Andria Kenyon CMA) Mother Myocardial infarction Daughter Alive and well Brother Cataract Social History: (Last Reviewed 07/15/19 @ 05:45 by Regis Garza DO) Social History: jail: Yes Marital status: current occupational status: retired Highest education level completed: high school graduate Service: Yes branch: [employer] Tobacco: Smoking Status: Never smoker Alcohol: alcohol intake: never Substance Use: substance use type: does not use Dietary Habits: caffeine: Yes Review Of Systems (GEN) - Review of Systems Generalized/Overall Review: Present: Weakness, Fatigue. Absent: Chills, Fever EENTM: Present: No Symptoms Reported Respiratory: Absent: Cough, Shortness of Breath Cardiac: Absent: Chest Pain, Edema Abdominal: Absent: Nausea, Vomiting, Abdominal Pain Musculoskeletal: Present: No Symptoms Reported Neurological: Present: Headache, Weakness Skin: Present: Other - scalp laceration Immunizations: IMMUNIZATION HX Immunizations Up to Date Yes History of Influenza Vaccine No Hx Pneumococcal Vaccination No Allergies/Adverse Reactions: Allergies Allergy/AdvReac Type Severity Reaction Status Date / Time morphine AdvReac Severe CONFUSION Verified 07/15/19 05:39 Home Medications: HOME MEDICATIONS Docusate Sodium [Colace] 100 mg PO TID PRN 09/27/14 [Last Taken Unknown] Bisacodyl [Dulcolax Suppository] 10 mg RC DAILY PRN 01/23/16 [Last Taken Unknown] Acetaminophen [Tylenol] 650 mg PO Q4H PRN 08/06/17 [Last Taken Unknown] Menthol [Biofreeze] 1 appl TP TID PRN 08/06/17 [Last Taken Unknown] escitalopram 20 mg tablet 20 mg PO DAILY #30 tab 11/08/18 [Last Taken Unknown] bumetanide 2 mg tablet 2 mg PO BID #60 tab 02/06/19 [Last Taken Unknown] lansoprazole 30 mg capsule,delayed release 30 mg PO BID #60 cap 02/06/19 [Last Taken Unknown] metoprolol tartrate 25 mg tablet 12.5 mg PO BID #30 tab 02/06/19 [Last Taken Unknown] potassium chloride ER 10 mEq capsule,extended release 20 meq PO TID #180 cap 02/06/19 [Last Taken Unknown] enalapril maleate 20 mg tablet 20 mg PO BID #60 tab 02/23/19 [Last Taken Unknown] Finasteride [Proscar] 5 mg PO DAILY 03/22/19 [Last Taken Unknown] hydrALAZINE HCL [Hydralazine HCl] 100 mg PO TID 03/22/19 [Last Taken Unknown] Aspirin [Aspirin Chewable] 81 mg PO DAILY 07/15/19 [Last Taken Unknown] Atorvastatin Calcium [Lipitor] 40 mg PO HS 07/15/19 [Last Taken Unknown] Furosemide [Lasix] 40 mg PO DAILY 07/15/19 [Last Taken Unknown] Rivaroxaban [Xarelto] 20 mg PO 1700 07/15/19 [Last Taken Unknown] buPROPion HCL [Wellbutrin Sr, Zyban] 150 mg PO DAILY 07/15/19 [Last Taken Unknown] Exam - Exam Vital Signs: Vital Signs - Last Taken Temp 36.6 C 07/15/19 22:00 Pulse 82 07/15/19 22:20 Resp 16 07/15/19 22:00 BP 95/49 07/15/19 22:20 Pulse Ox 100 07/15/19 22:00 Constitutional: Present: Alert Eye Exam: bilateral eye: normal inspection Respiratory: Present: lungs clear, no respiratory distress Cardiovascular/Chest: Present: irregularly irregular, edema - 1+ Peripheral Pulses: radial (R): 2+, radial (L): 2+ Abdomen: Present: Normal bowel sounds, soft, nondistended Skin Exam: Present: other - posterior scalp laceration and hematoma with josefina in crescent shape (golf ball sized) Neurologic: Present: other - flacid right upper extremity, garbled speech Appearance: Present: appropriate insight Diagnostic Studies: Abnormal Lab Results 07/15/19 07/15/19 07/15/19 Range/Units 12:27 12:27 12:27 RBC 2.09 L (4.7-6.0) M/mm3 Hgb 5.1 L* D (13.5-18.0) gm/dL Hct 17.7 L* D (42.0-52.0) % MCH 24.4 L (27-31) pg MCHC 28.8 L (32-36) g/dl RDW 20.4 H (11.5-14.0) % Plt Count 114 L (150-450) K/mm3 Neutrophils % 76.8 H (42-75.0) % Lymphocytes % 14.6 L (20-51) % Lymphocytes # 0.98 L (1.5-3.5) k/mm3 PT 14.0 H (9.1-10.7) Seconds INR (Anticoag Therapy) 1.43 H (0.92-1.08) INR Sodium 145 H (132-142) mmol/L Plasma Sodium 145 H (130-142) mmol/L Chloride 107 H (97-106) mmol/L Est GFR (Non-Af Amer) 56 L (60-130) mL/min Random Glucose 131 H (70-110) mg/dL ALT 8 L (19-67) U/L Total Protein 5.8 L (6.2-8.2) gm/dL Albumin 2.6 L (3.4-5.0) gm/dl Crossmatch 07/15/19 Range/Units 12:27 RBC (4.7-6.0) M/mm3 Hgb (13.5-18.0) gm/dL Hct (42.0-52.0) % MCH (27-31) pg MCHC (32-36) g/dl RDW (11.5-14.0) % Plt Count (150-450) K/mm3 Neutrophils % (42-75.0) % Lymphocytes % (20-51) % Lymphocytes # (1.5-3.5) k/mm3 PT (9.1-10.7) Seconds INR (Anticoag Therapy) (0.92-1.08) INR Sodium (132-142) mmol/L Plasma Sodium (130-142) mmol/L Chloride (97-106) mmol/L Est GFR (Non-Af Amer) (60-130) mL/min Random Glucose (70-110) mg/dL ALT (19-67) U/L Total Protein (6.2-8.2) gm/dL Albumin (3.4-5.0) gm/dl Crossmatch See Detail Laboratory Results WBC 6.7 K/mm3 (4.0-10.5) 07/15/19 12: RBC 2.09 M/mm3 (4.7-6.0) L 07/15/19 12:27 Hgb 5.1 gm/dL (13.5-18.0) L* D 07/15/19 12:27 Hct 17.7 % (42.0-52.0) L* D 07/15/19 12:27 MCV 84.7 fl (78-100) 07/15/19 12: MCH 24.4 pg (27-31) L 07/15/19 12: MCHC 28.8 g/dl (32-36) L 07/15/19 12: RDW 20.4 % (11.5-14.0) H 07/15/19 12:27 Plt Count 114 K/mm3 (150-450) L 07/15/19 12: MPV 9.0 fl (8-11.3) 07/15/19 12:27 Immature Gran % (Auto) 0.30 % (0.001-0.429) 07/15/19 12: Immature Gran # (Auto) 0.02 K/mm3 (0.000-0.0310) 07/15/19 12:27 76.8 % (42-75.0) H 07/15/19 12:27 14.6 % (20-51) L 07/15/19 12:27 8.1 % (0.0-9) 07/15/19 12:27 0.1 % (0.0-3.0) 07/15/19 12: 0.1 % (0.0-1.0) 07/15/19 12: Nucleated RBC % 0.0 k/mm3 (0-1) 07/15/19 12:27 5.1 K/mm3 (1.3-6.0) 07/15/19 12:27 0.98 k/mm3 (1.5-3.5) L 07/15/19 12:27 0.5 k/mm3 (0.0-1.0) 07/15/19 12:27 0.0 k/mm3 (0.0-0.7) 07/15/19 12:27 Absolute Basophils 0.0 k/mm3 (0.0-0.1) 07/15/19 12:27 PT 14.0 Seconds (9.1-10.7) H 07/15/19 12:27 INR (Anticoag Therapy) 1.43 INR (0.92-1.08) H 07/15/19 12:27 Sodium 145 mmol/L (132-142) H 07/15/19 12:27 145 mmol/L (130-142) H 07/15/19 12:27 Potassium 3.7 mmol/L (3.4-4.6) 07/15/19 12:27 Chloride 107 mmol/L (97-106) H 07/15/19 12:27 Carbon Dioxide 30.4 mmol/L (24-32.6) 07/15/19 12:27 11.3 mmol/L (6.8-13.8) 07/15/19 12:27 BUN 21 mg/dL (6-23) 07/15/19 12:27 1.28 mg/dL (0.4-1.4) 07/15/19 12:27 Est GFR (Non-Af Amer) 56 mL/min (60-130) L 07/15/19 12:27 16.4 (9.0-21.6) 07/15/19 12:27 131 mg/dL (70-110) H 07/15/19 12:27 Calcium 8.0 mg/dL (7.9-10.9) 07/15/19 12:27 Calcium Adj for Albumin 8.8 mg/dL (8.4-10.2) 07/15/19 12:27 0.7 mg/dL (0.0-1.1) 07/15/19 12:27 AST 16 U/L (0-48) 07/15/19 12:27 ALT 8 U/L (19-67) L 07/15/19 12:27 62 U/L (50-170) 07/15/19 12:27 5.8 gm/dL (6.2-8.2) L 07/15/19 12:27 2.6 gm/dl (3.4-5.0) L 07/15/19 12:27 Blood Type B Negative 07/15/19 12:27 Antibody Screen Positive 07/15/19 12:27 Crossmatch See Detail 07/15/19 12:27 Assessment/Plan - Narrative Narrative: Andrea is an 89 yo male with head trauma and scalp laceration while on Eliquis. Head CT was non-specific. Will admit to observation and repeat a CT of the head in 6-12 hours to see if there is any evidence of intracranial bleedi ng. Discussed with patient's the options if a bleed is found including transfer to neurosurgery vs keeping him comfortable here and considering hospice. Will hold eliquis at this time. CBC was obtained after arrival to the floor and hemoglobin was found to be 5. Blood was typed and crossed but found to have an antibody present. Will plan to transfuse blood once appropriate blood arrives from [place]. Will obtain repeat hemoglobin 1 hr after transfusion. If hemoglobin remains stable and no further bleeding may be discharged to home tomorrow. 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
[2019-07-16] MEDS: traMADol HCL 50 MG TABLET PO PRN (04:24)
[2019-07-16] MEDS: PANTOPRAZOLE SODIUM 40 MG TABLET.EC PO SCH ×2 (07:41→21:31)
[2019-07-16] MEDS ORDERED: FUROSEMIDE 10 MG/ML VIAL IV ONE ×4 (08:25→22:33)
--- NOTE | 2019-07-16 08:29 | PN ---
Subjective - Date and Time Seen Date: 07/16/19 Subjective Narrative: Patient is doing well overnight. No acute changes. No other concerns. Will wait for family to discuss management prior to discharge. Objective - Review of Systems Generalized/Overall Review: Reports: Weakness Respiratory: Reports: Shortness of Breath Cardiac: Denies: Chest Pain Abdominal: Denies: Nausea, Vomiting Genitourinary Symptoms: Reports: No Symptoms Reported Musculoskeletal Complaints: Reports: No Symptoms Reported Neurological: Reports: Pre-existing Deficit - no change from baseline Skin: Reports: Dryness - Vitals Vitals: Last Vital Signs Temp 36.6 C 07/16/19 05:56 Pulse 74 07/16/19 05:56 Resp 16 07/16/19 05:56 BP 98/44 07/16/19 05:56 Pulse Ox 98 07/16/19 05:56 - Abnormal Lab Findings Abnormal Lab Findings: Abnormal Lab Results 07/15/19 07/15/19 07/15/19 Range/Units 12:27 12:27 12:27 RBC 2.09 L (4.7-6.0) M/mm3 Hgb 5.1 L* D (13.5-18.0) gm/dL Hct 17.7 L* D (42.0-52.0) % MCH 24.4 L (27-31) pg MCHC 28.8 L (32-36) g/dl RDW 20.4 H (11.5-14.0) % Plt Count 114 L (150-450) K/mm3 Neutrophils % 76.8 H (42-75.0) % Lymphocytes % 14.6 L (20-51) % Lymphocytes # 0.98 L (1.5-3.5) k/mm3 PT 14.0 H (9.1-10.7) Seconds INR (Anticoag Therapy) 1.43 H (0.92-1.08) INR Sodium 145 H (132-142) mmol/L Plasma Sodium 145 H (130-142) mmol/L Chloride 107 H (97-106) mmol/L Est GFR (Non-Af Amer) 56 L (60-130) mL/min Random Glucose 131 H (70-110) mg/dL ALT 8 L (19-67) U/L Total Protein 5.8 L (6.2-8.2) gm/dL Albumin 2.6 L (3.4-5.0) gm/dl Crossmatch 07/15/19 Range/Units 12:27 RBC (4.7-6.0) M/mm3 Hgb (13.5-18.0) gm/dL Hct (42.0-52.0) % MCH (27-31) pg MCHC (32-36) g/dl RDW (11.5-14.0) % Plt Count (150-450) K/mm3 Neutrophils % (42-75.0) % Lymphocytes % (20-51) % Lymphocytes # (1.5-3.5) k/mm3 PT (9.1-10.7) Seconds INR (Anticoag Therapy) (0.92-1.08) INR Sodium (132-142) mmol/L Plasma Sodium (130-142) mmol/L Chloride (97-106) mmol/L Est GFR (Non-Af Amer) (60-130) mL/min Random Glucose (70-110) mg/dL ALT (19-67) U/L Total Protein (6.2-8.2) gm/dL Albumin (3.4-5.0) gm/dl Crossmatch See Detail - Exam Constitutional: Present: Alert, Oriented x3, Cooperative Respiratory: Present: chest non-tender, lungs clear, normal breath sounds Cardiovascular/Chest: Present: normal peripheral pulses, regular rate, rhythm, systolic murmur Abdomen: Present: Normal bowel sounds, soft, nontender Extremity: Present: normal capillary refill, pedal edema Skin Exam: Present: warm/dry Neurologic: Present: motor weakness - neurological deficits from prior stroke. No change from baseline, sensory deficit Appearance: Present: appropriate appearance Eye contact: Present: cooperative Assessment/Plan Plan Narrative: 1. Acute blood loss anemia - 1 unit of blood transfused followed by lasix 20 mg IV - Awaiting repeat H&H - Will order H&H Q6H. - Pending H&H will determine if second transfusion is necessary - Monitor for a transfusion reaction.l= 2. Head Injury requiring repair with josefina and associated hematoma - Repeat CT confirms no acute bleed - No acute neurological changes overnight - Will resume Eliquis. - D/C neuro checks 3. 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 History of CVA, CAD and Weakness - Willl discuss with family about starting home health to asssist with activities of daily living Diet: Soft DVT Prophylaxis: Eliquis CODE STATUS: DNR/DNI Disposition: - Anticipate discharge over the next 24 hours. - Anticipate home health services upon discharge. 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
[2019-07-16] MEDS: BUMETANIDE 1 MG TABLET PO SCH ×2 (08:46→21:31)
[2019-07-16] MEDS: ASPIRIN 81 MG TAB.CHEW PO SCH (08:46)
[2019-07-16] MEDS: METOPROLOL TARTRATE 25 MG TABLET PO SCH ×2 (08:47→21:30)
[2019-07-16] MEDS: POTASSIUM CHLORIDE 20 MEQ TABLET.SA PO SCH ×3 (08:47→17:36)
[2019-07-16] MEDS: FINASTERIDE 5 MG TABLET PO SCH (08:47)
[2019-07-16] MEDS: ESCITALOPRAM OXALATE 10 MG TAB PO SCH (08:47)
[2019-07-16] MEDS: ENALAPRIL MALEATE 20 MG TABLET PO SCH ×2 (08:48→21:31)
[2019-07-16] MEDS: buPROPion HCL 150 MG TABLET.SA PO SCH (10:15)
[2019-07-16 12:23] LABS: Mean Cell Volume 85.6 fl (78-100); Mean Corpuscular Hemoglobin 25.8 pg (27-31); Mean Corpuscular Hgb Conc 30.1 g/dl (32-36); Mean Platelet Volume 9.1 fl (8-11.3); Neutrophil # 4.7 K/mm3 (1.3-6.0); Neutrophil % 68.2 % (42-75.0); Platelet Count 126 K/mm3 (150-450); Red Blood Count 2.64 M/mm3 (4.7-6.0); Red Cell Distribution Width 18.6 % (11.5-14.0); White Blood Count 6.8 K/mm3 (4.0-10.5)
[2019-07-16 12:26] LABS: Hematocrit 22.6 % (42.0-52.0); Hemoglobin 6.8 gm/dL (13.5-18.0)
[2019-07-16 13:26] LABS: Hemoglobin 6.7 gm/dL (13.5-18.0)
[2019-07-16] MEDS ORDERED: ACETAMINOPHEN 500 MG TABLET PO ONE (13:39)
[2019-07-16] MEDS ORDERED: diphenhydrAMINE HCL 50 MG CAPSULE PO ONE (13:39)
--- NOTE | 2019-07-16 16:27 | PN ---
Progess Note - Interim Date: 07/16/19 Time: 16:25 Narrative: 07/16/19 16:25 Patient has recieved 2 units of blood with minimal improvement. Currently BP is slightly dropping, and remaining Physical examination is unremarkable. Patient has an antibody, and units of blood are being transported from [place]. To rule any any acute bleed will order Stat CT of abd/pelvis without contrast.
[2019-07-16] MEDS: RIVAROXABAN 20 MG TABLET PO SCH (16:44)
[2019-07-16] MEDS ORDERED: DIATRIZOATE MEGLUMINE, SODIUM 30 ML BTL PO ONE (18:20)
[2019-07-16 19:01] LABS: Mean Cell Volume 86.1 fl (78-100); Mean Corpuscular Hemoglobin 25.9 pg (27-31); Mean Corpuscular Hgb Conc 30.1 g/dl (32-36); Mean Platelet Volume 9.3 fl (8-11.3); NRBC# 0.1 k/mm3 (0-1); Neutrophil # 4.4 K/mm3 (1.3-6.0); Neutrophil % 64.1 % (42-75.0); Platelet Count 118 K/mm3 (150-450); Red Blood Count 2.51 M/mm3 (4.7-6.0); Red Cell Distribution Width 18.7 % (11.5-14.0); White Blood Count 6.9 K/mm3 (4.0-10.5)
[2019-07-16 19:03] LABS: Hemoglobin 6.5 gm/dL (13.5-18.0)
[2019-07-16 19:04] LABS: Hematocrit 21.6 % (42.0-52.0)
[2019-07-16] MEDS: ROSUVASTATIN CALCIUM 20 MG TABLET PO SCH (21:31)
[2019-07-17] MEDS ORDERED: diphenhydrAMINE HCL 50 MG CAPSULE PO ONE (01:05)
[2019-07-17] MEDS ORDERED: ACETAMINOPHEN 500 MG TABLET ONE (01:05)
[2019-07-17 05:53] LABS: Mean Cell Volume 86.4 fl (78-100); Mean Corpuscular Hemoglobin 26.5 pg (27-31); Mean Corpuscular Hgb Conc 30.6 g/dl (32-36); Mean Platelet Volume 9.6 fl (8-11.3); NRBC# 0.1 k/mm3 (0-1); Neutrophil # 4.5 K/mm3 (1.3-6.0); Neutrophil % 65.1 % (42-75.0); Platelet Count 108 K/mm3 (150-450); Red Blood Count 2.57 M/mm3 (4.7-6.0); Red Cell Distribution Width 18.6 % (11.5-14.0); White Blood Count 6.8 K/mm3 (4.0-10.5)
[2019-07-17 06:16] LABS: Hematocrit 22.2 % (42.0-52.0); Hemoglobin 6.8 gm/dL (13.5-18.0)
[2019-07-17] MEDS: PANTOPRAZOLE SODIUM 40 MG TABLET.EC PO SCH ×2 (07:17→20:40)
[2019-07-17 08:14] LABS: Hemoglobin 7.2 gm/dL (13.5-18.0)
[2019-07-17 08:17] LABS: Hematocrit 23.3 % (42.0-52.0)
[2019-07-17 08:45] LABS: Albumin * 2.8 gm/dl (3.4-5.0); Anion Gap 12.2 mmol/L (6.8-13.8); BUN/Creatinine Ratio 13.4 (9.0-21.6); Calcium * 7.5 mg/dL (7.9-10.9); Carbon Dioxide 28.9 mmol/L (24-32.6); Potassium 4.1 mmol/L (3.4-4.6); Total Protein 5.8 gm/dL (6.2-8.2)
[2019-07-17 08:46] LABS: Bilirubin, Total 0.9 mg/dL (0.0-1.1); Ca. Corrected For Albumin 8.1 mg/dL (8.4-10.2)
[2019-07-17] MEDS ORDERED: FUROSEMIDE 10 MG/ML VIAL IV ONE ×2 (08:46→14:35)
[2019-07-17 08:48] LABS: INR 1.27 INR (0.92-1.08); Partial Thrombolplastin Time 28.2 Seconds (24-32); Prothrombin Time (Patient) 12.5 Seconds (9.1-10.7)
[2019-07-17] MEDS: ENALAPRIL MALEATE 20 MG TABLET PO SCH ×2 (09:44→20:40)
[2019-07-17] MEDS: POTASSIUM CHLORIDE 20 MEQ TABLET.SA PO SCH ×3 (09:44→17:59)
[2019-07-17] MEDS: ESCITALOPRAM OXALATE 10 MG TAB PO SCH (09:44)
[2019-07-17] MEDS: FINASTERIDE 5 MG TABLET PO SCH (09:44)
[2019-07-17] MEDS: ASPIRIN 81 MG TAB.CHEW PO SCH (09:44)
[2019-07-17] MEDS: BUMETANIDE 1 MG TABLET PO SCH (09:44)
[2019-07-17] MEDS: METOPROLOL TARTRATE 25 MG TABLET PO SCH (09:45)
[2019-07-17] MEDS: buPROPion HCL 150 MG TABLET.SA PO SCH (09:45)
--- NOTE | 2019-07-17 10:38 | PN ---
Subjective - Date and Time Seen Date: 07/17/19 Time: 08:15 Subjective Narrative: Patient doing well overnight. No acute events. Hemoglobin has improved now at 7.2. Delay in transfusion overnight was due to to blood being transported from [place]. Currently we have 3 units available. Will transfuse 1 unit anticipating maximum 2 units and hemoglobin be greater than 8 and patient should be ready for discharge. Also discussed and concerns of fluid overload. Ag gressively diuresing p pre-and posttransfusion. Patient is seated up today he is able to smile and answer questions. is not present and usually the one would communicate any concerns. Will await for his to answer any questions. Otherwise no concerns. Objective - Review of Systems Generalized/Overall Review: Reports: Weakness Respiratory: Reports: Shortness of Breath Cardiac: Reports: Chest Pain, Edema Abdominal: Reports: Nausea, Vomiting Musculoskeletal Complaints: Reports: No Symptoms Reported Skin: Reports: Dryness - Vitals Vitals: Last Vital Signs Temp 36.6 C 07/17/19 06:41 Pulse 63 07/17/19 09:45 Resp 20 07/17/19 06:41 BP 97/46 07/17/19 09:45 Pulse Ox 93 07/17/19 06:41 - Abnormal Lab Findings Abnormal Lab Findings: Abnormal Lab Results 07/15/19 07/16/19 07/16/19 Range/Units 12:27 12:08 13:15 RBC 2.64 L (4.7-6.0) M/mm3 Hgb 6.8 L* D 6.7 L* (13.5-18.0) gm/dL Hct 22.6 L* D 22.0 L* (42.0-52.0) % MCH 25.8 L (27-31) pg MCHC 30.1 L (32-36) g/dl RDW 18.6 H (11.5-14.0) % Plt Count 126 L (150-450) K/mm3 Lymphocytes % 18.0 L (20-51) % Monocytes % 12.8 H (0.0-9) % Lymphocytes # 1.23 L (1.5-3.5) k/mm3 PT (9.1-10.7) Seconds INR (Anticoag Therapy) (0.92-1.08) INR Creatinine (0.4-1.4) mg/dL Est GFR (Non-Af Amer) (60-130) mL/min Calcium (7.9-10.9) mg/dL Calcium Adj for Albumin (8.4-10.2) mg/dL AST (0-48) U/L Total Protein (6.2-8.2) gm/dL Albumin (3.4-5.0) gm/dl Crossmatch See Detail 07/16/19 07/17/19 07/17/19 Range/Units 18:57 01:00 05:50 RBC 2.51 L 2.57 L (4.7-6.0) M/mm3 Hgb 6.5 L* 6.8 L* (13.5-18.0) gm/dL Hct 21.6 L* 22.2 L* (42.0-52.0) % MCH 25.9 L 26.5 L (27-31) pg MCHC 30.1 L 30.6 L (32-36) g/dl RDW 18.7 H 18.6 H (11.5-14.0) % Plt Count 118 L 108 L (150-450) K/mm3 Lymphocytes % (20-51) % Monocytes % 12.6 H 11.0 H (0.0-9) % Lymphocytes # 1.43 L (1.5-3.5) k/mm3 PT 12.5 H (9.1-10.7) Seconds INR (Anticoag Therapy) 1.27 H (0.92-1.08) INR Creatinine (0.4-1.4) mg/dL Est GFR (Non-Af Amer) (60-130) mL/min Calcium (7.9-10.9) mg/dL Calcium Adj for Albumin (8.4-10.2) mg/dL AST (0-48) U/L Total Protein (6.2-8.2) gm/dL Albumin (3.4-5.0) gm/dl Crossmatch 07/17/19 07/17/19 Range/Units 05:50 08:00 RBC (4.7-6.0) M/mm3 Hgb 7.2 L* (13.5-18.0) gm/dL Hct 23.3 L* (42.0-52.0) % MCH (27-31) pg MCHC (32-36) g/dl RDW (11.5-14.0) % Plt Count (150-450) K/mm3 Lymphocytes % (20-51) % Monocytes % (0.0-9) % Lymphocytes # (1.5-3.5) k/mm3 PT (9.1-10.7) Seconds INR (Anticoag Therapy) (0.92-1.08) INR Creatinine 1.72 H D (0.4-1.4) mg/dL Est GFR (Non-Af Amer) 40 L D (60-130) mL/min Calcium 7.5 L (7.9-10.9) mg/dL Calcium Adj for Albumin 8.1 L (8.4-10.2) mg/dL AST 82 H (0-48) U/L Total Protein 5.8 L (6.2-8.2) gm/dL Albumin 2.8 L (3.4-5.0) gm/dl Crossmatch - Exam Constitutional: Present: Alert, Cooperative Respiratory: Present: rhonchi - lower lobes BL. Cardiovascular/Chest: Present: regular rate, rhythm, no JVD, no murmur Abdomen: Present: Normal bowel sounds, soft, nontender Extremity: Present: normal inspection, no pedal edema, no calf tenderness Skin Exam: Present: normal color, warm/dry Appearance: Present: appropriate appearance Eye contact: Present: cooperative Assessment/Plan Plan Narrative: Assessment/Plan Plan Narrative: 1. Acute blood loss anemia - Hemoglobin has improved to 7.2. Target goal is 8.0-9.0 and asymptomatic - Concern of bleeding with minimal improvement of hgb with transfusion, CT ABD/PELVIS completed and ruled out any acute signs of bleed. - Continue to transfuse as per order - H&H 2 s/p transfusion - Monitor for a transfusion reaction. 2. Thrombocytopenia - will rule out secondary causes of bleeding - Slow decline in platelets from admission - PT/INR pending 3. JAG on CKD - Secondary to lasix treatment pre and post transfusion - Due to his history of CHF and PE concerning of rales and Imaging cw BL LL effusion, patient will require lasix to prevent fluid overload. - Will continue to monitor - Hydration outpatient and recheck within 1 week of discharge to ensure Cr has returned to baseline. - Hold Bumex. 4. Head Injury requiring repair with josefina and associated hematoma - Repeat CT confirms no acute bleed - No acute neurological changes overnight - Continue to hold Xarelto - D/C neuro checks 5. 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 History of CVA, CAD and Weakness - Discussed with family about starting home health to assist with activities of daily living. at bedside states they have tried longterm and home health and have not been much of help. Patient still fell a lot under their c are. What she would like is assistance in prevention of falls. Will provide education upond discharge. 8. Hypertension - Hold hypertensive medications. Bp and Pulse is running on the lower end Diet: Soft DVT Prophylaxis: SCDS CODE STATUS: DNR/DNI Disposition: - Anticipate discharge over the next 24 -48 hours. - Anticipate home health services upon discharge. 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
[2019-07-17 16:46] LABS: Hematocrit 25.5 % (42.0-52.0)
[2019-07-17] MEDS: ROSUVASTATIN CALCIUM 20 MG TABLET PO SCH (20:40)
[2019-07-17 21:28] LABS: Hematocrit 26.1 % (42.0-52.0); Mean Cell Volume 88.8 fl (78-100); Mean Corpuscular Hemoglobin 26.9 pg (27-31); Mean Corpuscular Hgb Conc 30.3 g/dl (32-36); Mean Platelet Volume 9.9 fl (8-11.3); Neutrophil # 3.1 K/mm3 (1.3-6.0); Neutrophil % 59.4 % (42-75.0); Platelet Count 115 K/mm3 (150-450); Red Blood Count 2.94 M/mm3 (4.7-6.0); Red Cell Distribution Width 18.6 % (11.5-14.0); White Blood Count 5.2 K/mm3 (4.0-10.5)
[2019-07-17 22:08] LABS: Hemoglobin 7.9 gm/dL (13.5-18.0)
[2019-07-18 05:52] LABS: Hematocrit 25.4 % (42.0-52.0); Mean Cell Volume 89.1 fl (78-100); Mean Corpuscular Hgb Conc 30.3 g/dl (32-36); Mean Platelet Volume 8.8 fl (8-11.3); Neutrophil # 2.7 K/mm3 (1.3-6.0); Neutrophil % 61.9 % (42-75.0); Platelet Count 93 K/mm3 (150-450); Red Blood Count 2.85 M/mm3 (4.7-6.0); Red Cell Distribution Width 18.5 % (11.5-14.0); White Blood Count 4.4 K/mm3 (4.0-10.5)
[2019-07-18 05:57] LABS: Hemoglobin 7.7 gm/dL (13.5-18.0)
[2019-07-18] MEDS ORDERED: diphenhydrAMINE HCL 50 MG CAPSULE PO ONE (06:02)
[2019-07-18] MEDS ORDERED: ACETAMINOPHEN 500 MG TABLET PO ONE (06:02)
[2019-07-18] MEDS ORDERED: FUROSEMIDE 10 MG/ML VIAL IV ONE (06:02)
[2019-07-18 06:07] LABS: Albumin * 2.8 gm/dl (3.4-5.0); Anion Gap 11.1 mmol/L (6.8-13.8); BUN/Creatinine Ratio 11.7 (9.0-21.6); Ca. Corrected For Albumin 8.1 mg/dL (8.4-10.2); Calcium * 7.5 mg/dL (7.9-10.9); Carbon Dioxide 29.4 mmol/L (24-32.6); Potassium 3.5 mmol/L (3.4-4.6); Total Protein 6.3 gm/dL (6.2-8.2)
[2019-07-18] MEDS: PANTOPRAZOLE SODIUM 40 MG TABLET.EC PO SCH (06:48)
[2019-07-18] MEDS: ASPIRIN 81 MG TAB.CHEW PO SCH (09:13)
[2019-07-18] MEDS: POTASSIUM CHLORIDE 20 MEQ TABLET.SA PO SCH ×3 (09:14→17:43)
[2019-07-18] MEDS: ESCITALOPRAM OXALATE 10 MG TAB PO SCH (09:14)
[2019-07-18] MEDS: buPROPion HCL 150 MG TABLET.SA PO SCH (09:15)
[2019-07-18] MEDS: ENALAPRIL MALEATE 20 MG TABLET PO SCH (09:16)
[2019-07-18] MEDS: FINASTERIDE 5 MG TABLET PO SCH (09:16)
[2019-07-18 12:24] LABS: Hematocrit 26.6 % (42.0-52.0)
--- NOTE | 2019-07-18 15:02 | DS ---
(1) Acute blood loss anemia Problem: Acute (2) Head injury Problem: Acute Qualifiers: Encounter type: initial encounter Qualified Code(s): S09.90XA - Unspecified injury of head, initial encounter (3) Scalp laceration Problem: Acute Qualifiers: Encounter type: initial encounter Qualified Code(s): S01.01XA - Laceration without foreign body of scalp, initial encounter (4) custodial current use of anticoagulant Problem: Chronic (5) History of CVA (cerebrovascular accident) Problem: Chronic (6) History of coronary artery disease Problem: Chronic (7) Weakness Problem: Chronic Date of Discharge:: 07/18/19 Description of Stay: Andrea is an 89 yo male with atrial fibrillation and history of stroke on Eliquis. He fell and hit his head causing a posterior scalp laceration that was stapled in the ER. Head CT was initially done in the ER and was negative for intracranial bleed. He was admitted to observation and a repeat Head CT was performed in 6 hours which still showed no evidence of active intracranial bleeding. His hemoglobin was checked and found to be 5. Blood was ordered but type and screen showed the presence of an antibody and special blood from [place] was required. This was transfused upon arrival and hemoglobin was rechecked. Hemoglobin remained low and he was evaluated for other sources of bleeding with abdominal CT which was negative. He required a total of 5 units of blood transfused from [place] and Hemoglobin reached 8. Scalp wound looked good and neurologically he is at his baseline from a prior stroke. He will be discharged to home. I will keep him off of blood thinners at this time but may consider restarting them in the future if the family wishes. I discussed the risk and benefits of anticoagulation vs another stroke. Procedures Performed: none Results and Findings: Lab Pending Results 07/15/19 12:27: WBC 6.7, RBC 2.09 L, Hgb 5.1 L* D, Hct 17.7 L* D, MCV 84.7, MCH 24.4 L, MCHC 28.8 L, RDW 20.4 H, Plt Count 114 L, MPV 9.0, Immature Gran % (Auto) 0.30, Immature Gran # (Auto) 0.02, Neutrophils % 76.8 H, Lymphocytes % 14.6 L, Monocytes % 8.1, Eosinophils % 0.1, Basophils % 0.1, Nucleated RBC % 0.0, Neutrophils # 5.1, Lymphocytes # 0.98 L, Monocytes # 0.5, Eosinophils # 0.0, Absolute Basophils 0.0 07/15/19 12:27: PT 14.0 H, INR (Anticoag Therapy) 1.43 H 07/15/19 12:27: Sodium 145 H, Plasma Sodium 145 H, Potassium 3.7, Chloride 107 H, Carbon Dioxide 30.4, Anion Gap 11.3, BUN 21, Creatinine 1.28, Est GFR (Non-Af Amer) 56 L, BUN/Creatinine Ratio 16.4, Random Glucose 131 H, Calcium 8.0, Calcium Adj for Albumin 8.8, Total Bilirubin 0.7, AST 16, ALT 8 L, Alkaline Phosphatase 62, Total Protein 5.8 L, Albumin 2.6 L 07/15/19 12:27: Blood Type B Negative, Antibody Screen Positive, Antibody Identification HTLA Antibodies, Crossmatch See Detail 07/16/19 12:08: WBC 6.8, RBC 2.64 L, Hgb 6.8 L* D, Hct 22.6 L* D, MCV 85.6, MCH 25.8 L, MCHC 30.1 L, RDW 18.6 H, Plt Count 126 L, MPV 9.1, Immature Gran % (Auto) 0.40, Immature Gran # (Auto) 0.03, Neutrophils % 68.2, Lymphocytes % 18.0 L, Monocytes % 12.8 H, Eosinophils % 0.3, Basophils % 0.3, Nucleated RBC % 0.0, Neutrophils # 4.7, Lymphocytes # 1.23 L, Monocytes # 0.9, Eosinophils # 0.0, Absolute Basophils 0.0 07/16/19 13:15: Hgb 6.7 L*, Hct 22.0 L* 07/16/19 18:57: WBC 6.9, RBC 2.51 L, Hgb 6.5 L*, Hct 21.6 L*, MCV 86.1, MCH 25.9 L, MCHC 30.1 L, RDW 18.7 H, Plt Count 118 L, MPV 9.3, Immature Gran % (Auto) 0.40, Immature Gran # (Auto) 0.03, Neutrophils % 64.1, Lymphocytes % 20.6, Mon ocytes % 12.6 H, Eosinophils % 1.9, Basophils % 0.4, Nucleated RBC % 0.1, Neutrophils # 4.4, Lymphocytes # 1.43 L, Monocytes # 0.9, Eosinophils # 0.1, Absolute Basophils 0.0 07/17/19 01:00: WBC 6.8, RBC 2.57 L, Hgb 6.8 L*, Hct 22.2 L*, MCV 86.4, MCH 26.5 L, MCHC 30.6 L, RDW 18.6 H, Plt Count 108 L, MPV 9.6, Immature Gran % (Auto) 0.30, Immature Gran # (Auto) 0.02, Neutrophils % 65.1, Lymphocytes % 21.9, Monocytes % 11.0 H, Eosinophils % 1.3, Basophils % 0.4, Nucleated RBC % 0.1, Neutrophils # 4.5, Lymphocytes # 1.50, Monocytes # 0.8, Eosinophils # 0.1, Absolute Basophils 0.0 07/17/19 05:50: PT 12.5 H, INR (Anticoag Therapy) 1.27 H, PTT ([place]) 28.2 07/17/19 05:50: Sodium 141, Plasma Sodium 141, Potassium 4.1, Chloride 104, Carbon Dioxide 28.9, Anion Gap 12.2, BUN 23, Creatinine 1.72 H D, Est GFR (Non- Af Amer) 40 L D, BUN/Creatinine Ratio 13.4, Random Glucose 75 D, Calcium 7.5 L, Calcium Adj for Albumin 8.1 L, Total Bilirubin 0.9, AST 82 H, ALT 36, Alkaline Phosphatase 64, Total Protein 5.8 L, Albumin 2.8 L 07/17/19 08:00: Hgb 7.2 L*, Hct 23.3 L* 07/17/19 16:29: Hgb 8.0 L, Hct 25.5 L 07/17/19 21:14: WBC 5.2 D, RBC 2.94 L, Hgb 7.9 L*, Hct 26.1 L, MCV 88.8, MCH 26.9 L, MCHC 30.3 L, RDW 18.6 H, Plt Count 115 L, MPV 9.9, Immature Gran % (Auto) 0.20, Immature Gran # (Auto) 0.01, Neutrophils % 59.4, Lymphocytes % 21.8, Monocytes % 15.3 H, Eosinophils % 2.7, Basophils % 0.6, Nucleated RBC % 0.0, Neutrophils # 3.1, Lymphocytes # 1.13 L, Monocytes # 0.8, Eosinophils # 0.1, Absolute Basophils 0.0 07/18/19 05:00: WBC 4.4, RBC 2.85 L, Hgb 7.7 L*, Hct 25.4 L, MCV 89.1, MCH 27.0, MCHC 30.3 L, RDW 18.5 H, Plt Count 93 L, MPV 8.8, Immature Gran % (Auto) 0.20, Immature Gran # (Auto) 0.01, Neutrophils % 61.9, Lymphocytes % 21.1, Monocytes % 12.9 H, Eosinophils % 3.2 H, Basophils % 0.7, Nucleated RBC % 0.0, Neutrophils # 2.7, Lymphocytes # 0.93 L, Monocytes # 0.6, Eosinophils # 0.1, Absolute Basophils 0.0 07/18/19 05:30: Sodium 142, Plasma Sodium 142, Potassium 3.5, Chloride 105, Carb on Dioxide 29.4, Anion Gap 11.1, BUN 16, Creatinine 1.37, Est GFR (Non-Af Amer) 52 L D, BUN/Creatinine Ratio 11.7, Random Glucose 84, Calcium 7.5 L, Calcium Adj for Albumin 8.1 L, Total Bilirubin 1.0, AST 66 H, ALT 31, Alkaline Phosphatase 67, Total Protein 6.3, Albumin 2.8 L 07/18/19 12:13: Hgb 8.0 L, Hct 26.6 L Discharge Location: Home Disposition: Home self-care Condition: Fair Discharge Activity: Activity as tolerated Discharge Diet: General/regular food Referrals: Nando Ghotra DO [Primary Care Provider] - One Week Problem Oriented Discharge Instructions to Patient/Family: Facial or Scalp Contusion, [id number] Additional Patient Instructions (free text): -Please make TCM appointment unless [facility] discharge, or if following up with outside provider. Thank you! Halie @ [phone] or Monica at [phone]. Complete Home Medications List: Complete Home Medication List: Docusate Sodium [Colace] 100 mg PO TID PRN 09/27/14 Bisacodyl [Dulcolax Suppository] 10 mg RC DAILY PRN 01/23/16 Acetaminophen [Tylenol] 650 mg PO Q4H PRN 08/06/17 Menthol [Biofreeze] 1 appl TP TID PRN 08/06/17 escitalopram 20 mg tablet 20 mg PO DAILY #30 tab 11/08/18 bumetanide 2 mg tablet 2 mg PO BID #60 tab 02/06/19 lansoprazole 30 mg capsule,delayed release 30 mg PO BID #60 cap 02/06/19 metoprolol tartrate 25 mg tablet 12.5 mg PO BID #30 tab 02/06/19 enalapril maleate 20 mg tablet 20 mg PO BID #60 tab 02/23/19 Finasteride [Proscar] 5 mg PO DAILY 03/22/19 hydrALAZINE HCL [Hydralazine HCl] 100 mg PO TID 03/22/19 Atorvastatin Calcium [Lipitor] 40 mg PO HS 07/15/19 Furosemide [Lasix] 40 mg PO DAILY 07/15/19 buPROPion HCL [Wellbutrin Sr, Zyban] 150 mg PO DAILY 07/15/19 potassium chloride ER 10 mEq capsule,extended release 20 meq PO TID #180 cap 07/18/19
[2019-07-18] MEDS: RIVAROXABAN 20 MG TABLET PO SCH (17:42)
[2019-07-18 17:51] VITALS: BP 139/76
== END 2019-07-18 18:15 | disposition home or self-care (01) | DRG 580 ==
LOC: MS 05:33 → ER 05:33 → MS 08:22
PROVIDERS: ADMIT Family Medicine; ATTEND Family Medicine
DX: S00.03XA Contusion of scalp, initial encounter; I69.320 Aphasia following cerebral infarction; E87.6 Hypokalemia; D69.6 Thrombocytopenia, unspecified; S01.01XA Laceration without foreign body of scalp, initial encounter; D62 Acute posthemorrhagic anemia; Z79.01 Long term (current) use of anticoagulants; I50.9 Heart failure, unspecified; I69.331 Monoplegia of upper limb following cerebral infarction affecting right dominant side; Z91.81 History of falling; I13.0 Hypertensive heart and chronic kidney disease with heart failure and stage 1 through stage 4 chronic kidney disease, or unspecified chronic kidney disease; N18.9 Chronic kidney disease, unspecified; Y92.003 Bedroom of unspecified non-institutional (private) residence as the place of occurrence of the external cause; I48.2 Chronic atrial fibrillation; I25.10 Atherosclerotic heart disease of native coronary artery without angina pectoris; N17.9 Acute kidney failure, unspecified; W01.190A Fall on same level from slipping, tripping and stumbling with subsequent striking against furniture, initial encounter
CPT/HCPCS: 12004; 36415; 36430; 70450; 72125; 74177; 80053; 85014; 85018; 85025; 85610; 85730; 86850; 86870; 96374; 99285; G0378; P9016